=== PATIENT | male | born 1955 | race Caucasian/White ===

== ENCOUNTER → 2018-10-28 15:57 | Outpatient (CLI) | payer OTHER ==
[2016-07-21 10:25] VITALS: BMI 23.8
[~2018-10-28 15:57] MED LIST: BENADRYL25 MG PO; CIPROFLOXIN NASAL; CLARITIN 10 MG10 MG PO; PREDNISONE20 MG PO; SINGULAIR10 MG PO; SYMBICORT 16010.2 GM INH; VENTOLIN HFA18 GM INH; [UNRECOGNIZED DRUG - OTHER] NASAL
== END | disposition home or self-care (01) ==
LOC: D.CT 15:57
DX: R10.9 Unspecified abdominal pain (principal)

== ENCOUNTER 2018-12-23 17:57 | Inpatient (IN) | payer OTHER ==
[~2018-12-23] VITALS: Ht 182.9 cm; Wt 73.5 kg
[2018-12-23] MEDS ORDERED: ZESTRIL20 MG PO (18:20)
[2018-12-23 18:46] LABS: BASOPHILS 0.6 % (0-2); EOSINOPHILS 7.6 % (0-7); HEMATOCRIT 50.1 % (42.0-54.0); HEMOGLOBIN 17.4 g/dL (13.5-17.5); IMMATURE GRANULOCYTES 0.5 % (0-5); LYMPHOCYTES 13.9 % (15-50); MCHC 34.7 g/dL (31.0-37.0); MCV 89.3 fL (80.0-100.0); MEAN PLATELET VOLUME 10.1 fL (7.4-10.4); MONOCYTES 11.8 % (2-11); NEUTROPHILS 65.6 % (40-80); RBC 5.61 10x6/uL (4.20-6.10); RDW 13.3 % (11.5-14.5); WBC 11.4 10x3/uL (4.8-10.8)
[2018-12-23 19:03] LABS: PLATELET COUNT 335 10x3/uL (130-400)
[2018-12-23 19:18] LABS: ALBUMIN 3.7 g/dL (3.4-5.0); BILIRUBIN - TOTAL 0.68 mg/dL (0.2-1.3); CALCIUM 9.7 mg/dL (8.5-10.1); CREATININE - SERUM 1.1 mg/dL (0.6-1.3); PROTEIN - SERUM 8.2 g/dL (6.4-8.2)
[2018-12-23 19:22] LABS: TROPONIN-I 0.018 ng/mL (0.000-0.060)
[2018-12-23 19:26] LABS: APPEARANCE CLEAR (CLEAR); COLOR YELLOW (YELLOW); SPECIFIC GRAVITY 1.025 (1.005-1.020)
[2018-12-23 19:27] LABS: BILIRUBIN NEGATIVE (NEGATIVE); GLUCOSE NEGATIVE (NEGATIVE); KETONE MODERATE mg/dL (NEGATIVE); NITRITE NEGATIVE (NEGATIVE); PROTEIN TRACE mg/dL (NEGATIVE); UROBILINOGEN NORMAL (NORMAL)
[2018-12-23 20:00] VITALS: BP 152/97; BP 163/85
--- NOTE | 2018-12-23 20:00 | NUR ---
PT RESTING ON BED. NO S/S OF ACUTE DISTRESS NOTED. PT C/O ABD PAIN AND NAUSEA.
--- NOTE | 2018-12-23 21:15 | NUR ---
RECEIVED PT FROM ER VIA W/C. ALERT AND ORIENTED X4. STATES HE HAS BEEN VOMITING FOR A FEW WEEKS BUT IT GOT WORSE ON SUNDAY. RESP EVEN AND NONLABORED. BBS CTA. ABD SOFT, BS PRESENT X 4 QUADS. REPORTS ABD CRAMPING 8 ON PAIN SCALE. NO N/V AT THIS TIME. HAS HX OF HTN AND HASNT TAKEN MEDS IN 3 DAYS. B/P ELEVATED. DENIES DIARRHEA. LAST BM TODAY. AMBULATORY. NS @ 100 ML/HR INFUSING IN RT AC WITHOUT DIFF. NO EDEMA NOTED. SR ELEVATED X2. CL IN REACH.
[2018-12-23 23:16] VITALS: BP 152/97; BMI 22.0
--- NOTE | 2018-12-23 23:45 | NUR ---
NAUSEATED AND GAGGING. MEDICATED WITH ZOFRAN ORDERED. CL IN REACH.
[2018-12-24] VITALS: BP 159/106
[2018-12-24 01:04] VITALS: BP 160/88
--- NOTE | 2018-12-24 01:09 | NUR ---
B/P RECHECKED BECAUSE PT WAS GAGGING WHEN V/S WERE TAKEN AT 2400. B/P 160/88. DENIES NAUSEA AT THIS TIME. STATES THE ZOFRAN HELPED. CL IN REACH.
[2018-12-24 04:00] VITALS: BP 138/76
[2018-12-24 07:36] LABS: BASOPHILS 0.4 % (0-2); EOSINOPHILS 2.7 % (0-7); HEMATOCRIT 45.2 % (42.0-54.0); HEMOGLOBIN 15.4 g/dL (13.5-17.5); IMMATURE GRANULOCYTES 0.3 % (0-5); LYMPHOCYTES 8.5 % (15-50); MCH 30.7 pg (26.0-34.0); MCHC 34.1 g/dL (31.0-37.0); MCV 90.2 fL (80.0-100.0); MEAN PLATELET VOLUME 10.8 fL (7.4-10.4); MONOCYTES 8.1 % (2-11); PLATELET COUNT 293 10x3/uL (130-400); RBC 5.01 10x6/uL (4.20-6.10); RDW 13.2 % (11.5-14.5); WBC 10.1 10x3/uL (4.8-10.8)
[2018-12-24 07:39] LABS: ALBUMIN 3.1 g/dL (3.4-5.0); ALKALINE PHOSPHATASE 83 U/L (46-116); ALT (SGPT) 24 U/L (10-68); CALC OSMOLALITY 284 mosm/kg (275-300); CALCIUM 8.8 mg/dL (8.5-10.1); CHLORIDE - SERUM 104 mmol/L (98-107); GLUCOSE 112 mg/dL (74-106); PHOSPHOROUS 3.1 mg/dL (2.5-4.9); POTASSIUM - SERUM 4.1 mmol/L (3.5-5.1); PROTEIN - SERUM 7.1 g/dL (6.4-8.2); SODIUM 140 mmol/L (136-145); UREA NITROGEN 26 mg/dL (7-18); eGFR NON AFRICAN AMERICAN 80 mL/min (90-120)
--- NOTE | 2018-12-24 08:00 | NUR ---
MORNING ASSESSMENT COMPLETE. SEE ASSESSMENT FLOWSHEET FOR FURTHER DETIALS. PT LYING IN BED AAO X4 TO PERSON, PLACE, TIME, AND SITUATION. DENIES NEEDS AT THIS TIME. CL IN REACH. SIDE RAILS UP X3 FOR PATIENT SAEFTY. BED IN LOWEST POSTION
[2018-12-24 14:08] VITALS: BP 182/84
[2018-12-24 15:02] VITALS: Ht 182.9 cm; Wt 73.5 kg
[2018-12-24 15:33] LABS: AMYLASE - SERUM 33 U/L (25-115); LIPASE 121 U/L (73-393)
[2018-12-24 18:36] VITALS: BP 189/96
--- NOTE | 2018-12-24 19:25 | NUR ---
SITTING UP IN BED TALKING TO FAMILY MEMBERS. ALERT AND ORIENTED X4. IRRITABLE. REPORTS PAIN IN ABD 2 ON PAIN SCALE. OFFERED PAIN MED BUT PT DECLINED. ZOFRAN DRIP @ 4.7 ML/HR FOR NAUSEA. NS @ 100 ML/HR INFUSING IN RT AC WITHOUT DIFF. RESP EVEN AND NONLABORED. BBS CTA. ABD IS DISTENDED AND SOFT. BS PRESENT X 4 QUADS. EXPLAINED TO PT THAT STOOL SPECIMEN WAS NEEDED. HAT PLACED IN TOILET FOR COLLECTION. HE VERBALIZED UNDERSTANDING. AMBULATORY. SR ELEVATED X2. CL IN REACH.
[2018-12-24 21:21] VITALS: BP 148/91
--- NOTE | 2018-12-24 23:12 | NUR ---
PT INFORMED ON NEW ORDER OF NPO EXCEPT ICE CHIPS. HE VERBALIZED UNDERSTANDING. CL IN REACH.
--- NOTE | 2018-12-25 03:21 | NUR ---
C/O NAUSEA. MEDICATED WITH PHENERGAN 12.5MG IM ORDERED. CL IN REACH.
[2018-12-25 04:39] VITALS: BP 151/89
--- NOTE | 2018-12-25 05:03 | NUR ---
STATES THAT THE PHENERGAN WAS THE BEST MEDICATION THAT HE HAS RECEIVED SINCE HE HAD BEEN HERE. STATES NAUSEA IS GONE.
[2018-12-25 07:39] LABS: BASOPHILS 0.4 % (0-2); EOSINOPHILS 3.8 % (0-7); HEMATOCRIT 42.6 % (42.0-54.0); HEMOGLOBIN 14.3 g/dL (13.5-17.5); IMMATURE GRANULOCYTES 0.2 % (0-5); LYMPHOCYTES 12.6 % (15-50); MCHC 33.6 g/dL (31.0-37.0); MCV 89.5 fL (80.0-100.0); MEAN PLATELET VOLUME 10.8 fL (7.4-10.4); MONOCYTES 7.3 % (2-11); NEUTROPHILS 75.7 % (40-80); PLATELET COUNT 292 10x3/uL (130-400); RBC 4.76 10x6/uL (4.20-6.10); RDW 13.2 % (11.5-14.5); WBC 10.9 10x3/uL (4.8-10.8)
[2018-12-25 07:53] LABS: ALBUMIN 3.1 g/dL (3.4-5.0); ALKALINE PHOSPHATASE 77 U/L (46-116); ALT (SGPT) 24 U/L (10-68); BILIRUBIN - TOTAL 0.64 mg/dL (0.2-1.3); CALC OSMOLALITY 279 mosm/kg (275-300); CALCIUM 8.4 mg/dL (8.5-10.1); CARBON DIOXIDE 21.1 mmol/L (21.0-32.0); CHLORIDE - SERUM 105 mmol/L (98-107); CREATININE - SERUM 0.9 mg/dL (0.6-1.3); GLUCOSE 93 mg/dL (74-106); POTASSIUM - SERUM 3.9 mmol/L (3.5-5.1); PROTEIN - SERUM 6.7 g/dL (6.4-8.2); SODIUM 139 mmol/L (136-145); eGFR NON AFRICAN AMERICAN 90 mL/min (90-120)
[2018-12-25 07:54] LABS: UREA NITROGEN 17 mg/dL (7-18)
--- NOTE | 2018-12-25 08:00 | NUR ---
MORNING ASSESSMENT COMPLETE. SEE ASSESSMENT FLOWSHEET FOR FURHTER DETAILS. PT LYING IN BED AAO X4 TO PERSON, PLACE, TIME, AND SITUATION. DENIES NEEDS AT THIS TIME. CL IN REACH. SIDE RAILS UP X3 FOR PT SAEFTY. BED IN LOWEST POSITION.
[2018-12-25 09:35] VITALS: BP 185/99
[2018-12-25 13:51] VITALS: BP 161/92
[2018-12-25 20:00] VITALS: BP 150/84
[2018-12-26] VITALS (7 sets, daily range): BP systolic 147–179; BP diastolic 82–96
--- NOTE | 2018-12-26 00:15 | NUR ---
ALERT RESTING IN BED REPORTS WAS ABLE TO EAT A LITTLE SUPPER AND SO FAR TOLERATING IT OK, SEE SHIFT ASSESSMENT, CALL LIGHT IN REACH
[2018-12-26 06:48] LABS: BASOPHILS 0.3 % (0-2); EOSINOPHILS 7.5 % (0-7); HEMATOCRIT 41.4 % (42.0-54.0); HEMOGLOBIN 14.3 g/dL (13.5-17.5); IMMATURE GRANULOCYTES 0.2 % (0-5); LYMPHOCYTES 13.7 % (15-50); MCH 30.4 pg (26.0-34.0); MCHC 34.5 g/dL (31.0-37.0); MCV 88.1 fL (80.0-100.0); MEAN PLATELET VOLUME 10.6 fL (7.4-10.4); MONOCYTES 11.4 % (2-11); NEUTROPHILS 66.9 % (40-80); PLATELET COUNT 267 10x3/uL (130-400); RDW 13.2 % (11.5-14.5); WBC 11.5 10x3/uL (4.8-10.8)
[2018-12-26 06:55] LABS: ALBUMIN 2.9 g/dL (3.4-5.0); ALKALINE PHOSPHATASE 74 U/L (46-116); ALT (SGPT) 22 U/L (10-68); CALC OSMOLALITY 270 mosm/kg (275-300); CALCIUM 8.3 mg/dL (8.5-10.1); CARBON DIOXIDE 21.3 mmol/L (21.0-32.0); CHLORIDE - SERUM 101 mmol/L (98-107); CREATININE - SERUM 0.8 mg/dL (0.6-1.3); GLUCOSE 76 mg/dL (74-106); POTASSIUM - SERUM 3.5 mmol/L (3.5-5.1); PROTEIN - SERUM 6.5 g/dL (6.4-8.2); SODIUM 136 mmol/L (136-145); UREA NITROGEN 13 mg/dL (7-18); eGFR NON AFRICAN AMERICAN > 90 mL/min (90-120)
--- NOTE | 2018-12-26 08:00 | NUR ---
MORNING ASSESSMENT COMPLETE. SEE ASSESSMENT FLOWSHEET FOR FURTHER DETAILS. PT LYING IN BED AAO X4 TO [place], PLACE, TIME, AND SITUATION. DENIES NEEDS AT THIS TIME. CL IN REACH. SIDE RAILS UP X3 FOR PT NILES
--- NOTE | 2018-12-26 11:58 | MORECARE ---
CASE MANAGEMENT DISCHARGE SUMMARY PATIENT: CANDACE PARR UNIT: [id number] ADM DATE: 12/23/18 AGE: 63 : 54 SEX: M ROOM/BED: D.2230 AUTHOR: ULICESDOC PHYSICIAN: REFERRING PHYSICIAN: ERNST CONTEH MD DATE OF SERVICE: 12/26/18 Discharge Plan Patient Name: CANDACE PARR Facility: [facility]:[place] : 1955 Planned Disposition: Home Anticipated Discharge Date: Discharge Date: Expected LOS: 0 Initial Reviewer: [email or web address] Initial Review Date: 12/23/2018 Generated: 12/26/18 12:57 pm Comments DCP- Discharge Planning Updated by [email or web address]: Queta Christian on 12/26/18 10:[address] Patient Name: CANDACE PARR Admission Status: ER Accout number: [id number] Admission Date: 12-23-2018 : 1955 Admission Diagnosis: Attending: YADY, Current LOS: 3 Anticipated DC Date: Planned Disposition: Home Primary Insurance: [employer]OV[employer] MANAGED MEDICAID Discharge Planning Comments: CM met with patient to complete initial dc planning assessment. CM educated patient on the CM role and verbal consent given by patient to complete assessment. Patient lives at home with his and 9 year old daughter. At discharge patient plans to return and feels this is a safe discharge. CM discussed availability of home health, rehab services, and medical equipment. Patient denied known discharge needs at this time. CM will continue to follow and will assist as needed with dc plans/needs. Shipwright: Queta Christian DCPIA - Discharge Planning Initial Assessment Updated by [email or web address]: Queta Christian on 12/26/18 11:52 am * Is the patient Alert and Oriented? Yes * How many steps to enter\exit or inside your home? 15/0 * PCP Dr. Genao * Pharmacy [facility] on [address] * Preadmission Environment Home with Family * ADLs Independent * Equipment Nebulizer * List name and contact numbers for known caregivers / representatives who currently or will assist patient after discharge: Monika chavez - [phone] * Verbal permission to speak to the caregivers and representatives has been obtained from the patient. Yes * Community resources currently utilized None * Please name any agencies selected above. DME for Nebulizer supplies is [employer] ([place]). Mailed to his home. Set up by ENT Dr. Blanton in [place] * Additional services required to return to the preadmission environment? No * Can the patient safely return to the preadmission environment? Yes * Has this patient been hospitalized within the prior 30 days at any hospital? No Patient Name: CANDACE PARR Page [phone] at 1158 All edits/amendments must be made on the electronic document DICTATION DATE: 12/26/18 1157 BATCH UNIT TREATER: CAROLEE 12/26/18 1157 RPT#: [id number] DC DATE: STATUS: ADM IN [facility] [address] [place] [address] END OF REPORT
--- NOTE | 2018-12-26 14:47 | NUR ---
NUTRITION F/U CHART REVIEWED. PT VISIT. TOLERATING FULL LIQUID DIET. WILL MONITOR DIET ADVANCEMENT, PO INTAKE. RD FOLLOWING
--- NOTE | 2018-12-26 15:33 | NUR ---
R WRIST PIV INFILTRATED. RESITED TO R FA- 22G X1 ATTEMPT. FLUSHES WELL.
--- NOTE | 2018-12-26 21:10 | NUR ---
AWAKE,ALERT,NO COMPLAITNS VOICED. RESP EVEN AND UNALBORED. NO DISTRESS NOTED. IV INFUSING TO RFA WITHOUT REDNESS OR EDEMA NOTED. ABD SOFT NONDISTENDED. NO COMPLAINTS OF NAUSEA. CL IN REACH
--- NOTE | 2018-12-27 03:34 | NUR ---
I have reviewed this patient and I concur with the Shift Assessment completed by the Licensed Practical Nurse today this shift.
[2018-12-27 04:58] VITALS: BP 169/82
[2018-12-27 05:00] LABS: BASOPHILS 0.4 % (0-2); EOSINOPHILS 9.2 % (0-7); HEMATOCRIT 40.7 % (42.0-54.0); HEMOGLOBIN 14.3 g/dL (13.5-17.5); IMMATURE GRANULOCYTES 0.3 % (0-5); MCH 30.7 pg (26.0-34.0); MCHC 35.1 g/dL (31.0-37.0); MCV 87.3 fL (80.0-100.0); MEAN PLATELET VOLUME 10.6 fL (7.4-10.4); MONOCYTES 10.8 % (2-11); NEUTROPHILS 65.3 % (40-80); PLATELET COUNT 258 10x3/uL (130-400); RBC 4.66 10x6/uL (4.20-6.10); RDW 13.1 % (11.5-14.5); WBC 9.9 10x3/uL (4.8-10.8)
[2018-12-27 05:11] LABS: ALBUMIN 2.8 g/dL (3.4-5.0); ALKALINE PHOSPHATASE 73 U/L (46-116); ALT (SGPT) 24 U/L (10-68); CALC OSMOLALITY 272 mosm/kg (275-300); CALCIUM 8.5 mg/dL (8.5-10.1); CARBON DIOXIDE 25.8 mmol/L (21.0-32.0); CHLORIDE - SERUM 102 mmol/L (98-107); CREATININE - SERUM 0.9 mg/dL (0.6-1.3); GLUCOSE 74 mg/dL (74-106); POTASSIUM - SERUM 3.4 mmol/L (3.5-5.1); PROTEIN - SERUM 6.6 g/dL (6.4-8.2); SODIUM 137 mmol/L (136-145); UREA NITROGEN 12 mg/dL (7-18); eGFR NON AFRICAN AMERICAN 90 mL/min (90-120)
[2018-12-27 08:52] VITALS: BP 183/103
[2018-12-27] MEDS ORDERED: PROTONIX40 MG PO (12:23)
[2018-12-27] MEDS ORDERED: CARAFATE1 G PO (12:23)
[2018-12-27] MEDS ORDERED: NORVASC5 MG PO (12:36)
--- NOTE | 2018-12-27 13:19 | MORECARE ---
CASE MANAGEMENT DISCHARGE SUMMARY PATIENT: CANDACE PARR UNIT: [id number] ADM DATE: 12/26/18 AGE: 63 : 54 SEX: M ROOM/BED: D.2230 AUTHOR: SUNIL ELENA PHYSICIAN: REFERRING PHYSICIAN: ERNST CONTEH MD DATE OF SERVICE: 12/27/18 Discharge Plan Patient Name: CANDACE PARR Facility: [facility]:[place] : 1955 Planned Disposition: Home Anticipated Discharge Date: Discharge Date: Expected LOS: 0 Initial Reviewer: [email or web address] Initial Review Date: 12/23/2018 Generated: 12/27/18 2:18 pm Comments DCP- Discharge Planning Updated by [email or web address]: Queta Christian on 12/27/18 12:[address] Patient Name: CANDACE PARR Encounter No: [id number] : 1955 Primary Insurance: [employer] MANAGED MEDICAID Anticipated DC Date: Planned Disposition: Home External Planned Provider: : DCP follow-up note: Patient and family in agreement with discharge plan. No changes to plan. Case management will follow and assist as needed. Queta Christian DCP- Discharge Planning Updated by [email or web address]: Queta Christian on 12/26/18 10:[address] Patient Name: CANDACE PARR Admission Status: ER Accout number: [id number] Admission Date: 12-23-2018 : 1955 Admission Diagnosis: Attending: YADY, Current LOS: 3 Anticipated DC Date: Planned Disposition: Home Primary Insurance: [employer] MANAGED MEDICAID Discharge Planning Comments: CM met with patient to complete initial dc planning assessment. CM educated patient on the CM role and verbal consent given by patient to complete assessment. Patient lives at home with his and 9 year old daughter. At discharge patient plans to return and feels this is a safe discharge. CM discussed availability of home health, rehab services, and medical equipment. Patient denied known discharge needs at this time. CM will continue to follow and will assist as needed with dc plans/needs. Superintendent Division: Queta Christian DCPIA - Discharge Planning Initial Assessment Updated by [id number]: Queta Christian on 12/26/18 11:52 am * Is the patient Alert and Oriented? Yes * How many steps to enter\exit or inside your home? 15/0 * PCP Dr. Genao * Pharmacy [facility] on [address] * Preadmission Environment Home with Family * ADLs Independent * Equipment Nebulizer * List name and contact numbers for known caregivers / representatives who currently or will assist patient after discharge: Monika chavez - [phone] * Verbal permission to speak to the caregivers and representatives has been obtained from the patient. Yes * Community resources currently utilized None * Please name any agencies selected above. DME for Nebulizer supplies is [employer] ([place]). Mailed to his home. Set up by ENT Dr. Blanton in [place] * Additional services required to return to the preadmission environment? No * Can the patient safely return to the preadmission environment? Yes * Has this patient been hospitalized within the prior 30 days at any hospital? No Last DP export: 12/26/18 10:57 am Patient Name: CANDACE PARR Page [phone] at 1319 All edits/amendments must be made on the electronic document DICTATION DATE: 12/27/181317 FURNACE CHARGING MACHINE OPERATOR: CAROLEE 12/27/181317 RPT#: [id number] DC DATE: STATUS: ADM IN [facility] [address] [place] [address] END OF REPORT
[2018-12-27 13:21] VITALS: BP 145/87
[2018-12-27 16:40] VITALS: BP 169/95
--- NOTE | 2018-12-27 17:22 | NUR ---
IV REMOVED WITH CATH INTACT, NO REDNESS OR EDEMA, DISCHARGE INSTRUCTIONS GIVEN WITH PATIENT VOICING UNDERSTANDING. PATIENT REQUEST TO AMBULATE OUT WITH FAMILY
== END 2018-12-27 17:23 | disposition home or self-care (01) | DRG 392 ==
LOC: D.ER 17:57 → D.MS 20:35 → OBSVTIME 20:35 → D.MS 20:35
PROVIDERS: Family Medicine; Internal Medicine Gastroenterology; ADMIT Family Medicine; ATTEND Family Medicine
PROC: 0DB68ZX Excision of Stomach, Via Natural or Artificial Opening Endoscopic, Diagnostic (ICD-10-PCS; 2018-12-25)
PROC: 0DB98ZX Excision of Duodenum, Via Natural or Artificial Opening Endoscopic, Diagnostic (ICD-10-PCS; principal; 2018-12-25 16:30)
DX: K29.00 Acute gastritis without bleeding (principal); K44.9 Diaphragmatic hernia without obstruction or gangrene; K31.7 Polyp of stomach and duodenum; E86.0 Dehydration; I10 Essential (primary) hypertension; Z87.891 Personal history of nicotine dependence; F12.90 Cannabis use, unspecified, uncomplicated; R73.03 Prediabetes

== ENCOUNTER → 2019-01-03 14:56 | Outpatient (CLI) | payer OTHER ==
[2018-12-24 15:02] VITALS: BMI 21.9
[~2019-01-03 14:56] MED LIST changes: +CARAFATE1 G PO; +NORVASC5 MG PO; +PROTONIX40 MG PO; +ZESTRIL20 MG PO
[2019-01-06 13:10] LABS: ANTIGLIADIN IGA 5 units (0-19); ANTIGLIADIN IGG 3 units (0-19)
[2019-01-07 11:00] LABS: ENDOMYSIAL ANTIBODY IGA Negative (Negative)
== END | disposition home or self-care (01) ==
LOC: D.LAB 14:56
PROVIDERS: ATTEND Internal Medicine Gastroenterology
DX: D72.820 Lymphocytosis (symptomatic) (principal)

== ENCOUNTER → 2019-01-17 08:12 | Outpatient (CLI) | payer OTHER | END | disposition home or self-care (01) | LOC: D.RAD 08:12 | DX: R63.4 Abnormal weight loss (principal); R10.9 Unspecified abdominal pain ==

== ENCOUNTER → 2019-06-11 11:13 | Outpatient (CLI) | payer OTHER ==
[2018-12-24 15:02] VITALS: BMI 21.9
--- NOTE | 2019-06-17 13:38 | ST ---
PATIENT:CANDACE PARR MEDICAL RECORD: [id number] SEX: M LOCATION:[facility] ORDER #: ADMISSION DATE: 06/11/19 AGE OF PATIENT: 63 REFERRING PHYSICIAN: INTERPRETING PHYSICIAN: ONEL JALLOH MD DATE OF SERVICE: 06/11/2019 INDICATIONS: Angina and coronary artery disease and hypertension. DESCRIPTION OF THE PROCEDURE: He was exercised on standard [place] protocol for 7 minutes 55 seconds, terminated due to angina, shortness of breath and greater than 85% max target heart rate response. FINDINGS: There was greater than [address] depression with the anginal symptomatology and at peak exercise. OVERALL IMPRESSION: Positive for inducible ischemia at adequate cardiac workload. Current test does suggest the presence of hemodynamically significant coronary artery disease. TRANSINT:[id number] Voice Confirmation ID: [id number] DOCUMENT ID: [id number] ONEL JALLOH MD at 1338 CC: EULOGIO CASTELLON DO [id number] DICTATION DATE: 06/16/19 1035 YARN TEXTURING MACHINE OPERATOR: 06/17/19 0336 DEP CLI 06/11/19 [id number] [place] [address]
== END | disposition home or self-care (01) ==
LOC: D.HCCARDIO 11:13
PROVIDERS: ATTEND Internal Medicine Interventional Cardiology
DX: I20.9 Angina pectoris, unspecified (principal)

== ENCOUNTER 2019-07-04 08:40 | Outpatient (CLI) | payer OTHER ==
[~2019-07-04] VITALS: Ht 180.3 cm; Wt 74.1 kg
--- NOTE | ~2019-07-04 | HEMODYNAMI ---
PATIENT:CANDACE PARR MEDICAL RECORD: [id number] : 53 LOCATION:[facility] ADMISSION DATE: 07/04/19 Generatedon:07/04/201911:35 Patient name: CANDACE PARR Patient #: [id number] : 1955 Date of study: 07/04/2019 Page: Of Hemodynamic Procedure Report Patient Data Patient Demographics Procedure consent was obtained First Name: CANDACE Gender: Male Last Name: KAROLYN : 1955 Middle Initial: OLI Age: 63 year(s) Patient #: [id number] Race: Unknown SSN: [id number] Additional ID: [id number] Contact details Address: [address] [place] [address] rd State: [place] City: [place] Zip code: [address] Past Medical History Allergies Allergen Reaction Date Comments Reported Other allergy 07/04/2019 NSAIDS Admission Admission Data Admission Date: 07/04/2019 Admission Time: 8:40 Arrival Date: 07/04/2019 Arrival Time: 0:00 Admit Source: Other Insurance Payor: Medicare Height (in.): 70.87 BSA: 1.93 (m2) Height (cm.): 180 BMI: 22.84 (kg/m2) Weight (lbs.): 163.14 Weight (kg.): 74 Lab Results Lab Result Date: 07/04/2019 Lab Result Time: 0:00 Biochemistry Name Units Result Min Max BUN mg/dl 24 --(----)-* 7 18 Creatinine mg/dl 0.9 --(-*--)-- 0.6 1.3 eGFR ml/min 90 --(*---)-- 90 120 NONAFRICAN CBC Name Units Result Min Max Hemoglobin g/dl 13.1 -*(----)-- 13.5 17.5 Procedure Procedure Types Cath Procedure Diagnostic Procedure C [facility] w/Coronaries Sedation Charges Moderate Sedation up to 15 minutes PCI Procedure Coronary Stent Coronary Stent Initial Procedure Description Procedure Date Procedure Date: 07/04/2019 Procedure Start Time: 11:17 Procedure End Time: 11:33 Procedure Staff Name Function Linda Juju RT Scrub Karma Vasquez RT Monitor Guadalupe Ring RN Nurse Kenneth Domínguez MD Performing Physician Indication Chest pain Angina Procedure Data Cath Procedure Fluoroscopy Diagnostic fluoroscopy Total fluoroscopy Time: 3.9 time: 3.9 min min Diagnostic fluoroscopy Total fluoroscopy dose: 635 dose: 635 mGy mGy Contrast Material Contrast Material Type Amount (ml) Isovue 300 108 Entry Location Entry Primary Successful Side Size Upsize Upsize Entry Closure Farrell ccessful Closure Location (Fr) 1 (Fr) 2 (Fr) Remarks Device Remarks Radial Right 6 Fr Mechanical artery Short Compression Estimated blood loss: 10 ml Diagnostic catheters Device Type Used For End Catheter Placement DIAGNOSTIC [place] 110cm 5 Procedure Fr catheter ([id number]) Procedure Complications No complications Procedure Medications Medication Administration Route Dosage 0.9% NaCl I.V. 100 ml/hr Oxygen etCO2 Nasal cannula 2 l/min Lidocaine 2% added to field 20 Heparin Flush Bag added to field 2 bags (1000units/500ml NS) Radial Cocktail added to field 1 syringe (Verapamil 2mg/Nitro 400mcg/Heparin 1500units) Versed I.V. 2 mg Fentanyl I.V. 100 mcg Heparin Bolus I.V. 4000 units Integrilin (Bolus I.V. 6.8 ml 2mg/ml) Integrilin (Bolus wasted 3.2 ml 2mg/ml) Plavix P.O. 600 mg Hemodynamics Rest BSA: 1.93 (m2) O2 Consumption: Estimated: 227.69 (ml/min) O2 Consumption indexed : Estimated:117.97 (ml/min/m) Heart Rate: 73 (bpm) Pressure Samples Time Site Value (mmHg) Purpose Heart Use Rate(bpm) 11:18 LV 128/7,25 Snapshot 73 11:18 AO 119/72(91) Pullback 62 11:18 LV 105/31,21 Pullback 62 Gradients Valve Time Site 1 Site 2 Mean SEP/DFP Peak To Heart Use (mmHg) (sec/min) Peak Rate (mmHg) (bpm) Aortic 11:18 LV AO 0 62 105/31,21 119/72(91) Calculations Valve P-P Mean Valve Index Valve Source Name Gradient Area Flow (cm2) Aortic 0 0 Snapshots Pre Cath Intra NCS Post Cath Vital Signs Time Heart Resp SPO2 etCO2 NIBP (mmHg) Rhythm Pain Sedation Rate (ipm) (%) (mmHg) Status Level (bpm) 11:08:16 51 17 98 31.6 Measuring SB 0 (11) 10(A) , No pain 11:08:37 51 16 97 28.6 158/88(132) SB 0 (11) 10(A) , No pain 11:12:56 53 16 98 3.7 156/85(129) SB 0 (11) 10(A) , No pain 11:17:55 60 16 99 30.1 Measuring SB 0 (11) 9(A) , No pain 11:18:36 56 14 98 15 121/67(81) SB 0 (11) 9(A) , No pain 11:22:46 56 14 98 12.8 126/72(110) SB 0 (11) 9(A) , No pain 11:27:43 52 13 98 26.3 128/79(104) SB 0 (11) 10(A) , No pain 11:31:53 59 9 98 27.1 134/80(113) SB 0 (11) 10(A) , No pain Medications Time Medication Route Dose Verified Delivered Reason Not es Effectiveness by by 11:06:35 0.9% NaCl I.V. 100 Kenneth Guadalupe used for ml/hr Sang Ring hand lens polisher 11:06:42 Oxygen etCO2 2 l/min Kenneth Guadalupe used for Nasal Sang Ring procedure cannula RN 11:06:46 Lidocaine 2% added 20ml Kenneth Cooper for local to vial Sang Domínguez MD anesthetic field 11:06:51 Heparin Flush added 2 bags Kenneth Cooper used for Bag to Sang oDmínguez MD procedure (1000units/500ml field NS) 11:07:00 Radial Cocktail added 1 Kenneth Cooper used for (Verapamil to syringe Sang Domínguez MD procedure 2mg/Nitro field 400mcg/Heparin 1500units) 11:15:40 Versed I.V. 2 mg Kenneth Guadalupe for sedation Sang Ring RN 11:15:45 Fentanyl I.V. 100 mcg Kenneth Guadalupe for sedation Sang Ring RN 11:22:05 Heparin Bolus I.V. 4000 Kenneth Guadalupe for anila ified units Sang Ring anticoagulation with Dr. RAJANI Domínguez 11:22:18 Integrilin I.V. 6.8 ml Kenneth Mckeona for (Bolus 2mg/ml) Sang Ring antiplatelet RN therapy 11:22:29 Integrilin wasted 3.2 ml Kenneth Butcher for (Bolus 2mg/ml) Sang Ring antiplatelet RN therapy 11:22:35 Plavix P.O. 600 mg Kenneth Butcher for Sang Ring antiplatelet RN therapy Procedure Log Time Note 10:50:42 Procedure Status Elective Heart Cath (OP). 10:50:44 Guadalupe Ring RN sent for patient. Start room use. 10:50:46 Time tracking: Regular hours (M-F 7:00 - 5:00) 10:54:19 Plan of Care:Hemodynamics will remain stable., Cardiac rhythm will remain stable., Comfort level will be maintained., Respiratory function will remain adequate., Patient/ family verbilizes understanding of procedure., Procedure tolerated without complication., Recovers from procedure without complications.. 10:54:42 Informed consent obtained and on chart 10:58:59 Patient Height : 70.87 inches 10:59:01 Patient Weight : 163.14 lbs 10:59:04 Admit Source: Other 10:59:07 Arrival Date: 07/04/2019 12:00:00 AM 10:59:18 Insurance Payor : Medicare 11:00:28 Lab Result : Creatinine 0.9 mg/dl 11:00:28 Lab Result : BUN 24 mg/dl 11:00:28 Lab Result : Hemoglobin 13.1 g/dl 11:00:28 Lab Result : eGFR NONAFRICAN 90 ml/min 11:00:44 Indication : Chest pain 11:01:03 Indication : Angina 11:01:30 Patient received from Pre/Post Procedure Room to CCL 2 Alert and oriented. Tansferred to table in Supine position. 11:01:31 Warm blankets applied, and charli hugger turned on for patient comfort. 11:01:32 Correct patient and procedure confirmed by team. 11:01:33 ECG and BP/O2 sat monitors applied to patient. 11:01:53 H&P Date Dictated: 06/05/2019 Within 30 days and on chart., H&P Addendum completed by physician on day of procedure. (MUST COMPLETE FOR ALL OUTPATIENTS). 11:01:55 Pre-procedure instructions explained to patient. 11:01:57 Family in waiting room. 11:01:58 Patient NPO since Midnight. 11:02:12 Patient allergic to Other allergyNSAIDS 11:02:15 Is the patient allergic to Iodine/contrast media? No. 11:02:16 Was the patient premedicated? Yes 11:06:26 Vital chart was started 11:06:35 0.9% NaCl 100 ml/hr I.V. was administered by Guadalupe Ring RN; used for procedure; Verbal order read back and verified. 11:06:42 Oxygen 2 l/min etCO2 Nasal cannula was administered by Guadalupe Ring RN; used for procedure; Verbal order read back and verified. 11:06:46 Lidocaine 2% 20ml vial added to field was administered by Kenneth Domínguez MD; for local anesthetic; Verbal order read back and verified. 11:06:51 Heparin Flush Bag (1000units/500ml NS) 2 bags added to field was administered by Kenneth Domínguez MD; used for procedure; Verbal order read back and verified. 11:07:00 Radial Cocktail (Verapamil 2mg/Nitro 400mcg/Heparin 1500units) 1 syringe added to field was administered by Kenneth Domínguez MD; used for procedure; Verbal order read back and verified. 11:10:02 Is patient on blood thinner?No 11:10:13 Patient diabetic? No. 11:10:17 Snore? Unknown 11:10:19 Sleep apnea? No 11:10:23 Airway obstruction? Yes copd 11:10:29 Dentures? No ? 11:10:42 Lab results completed and on chart. 11:10:47 Patient pain scale 0/10 ?. 11:10:53 Right Radial & Right Groin area was prepped with chlora-prep and draped in sterile fashion 11:10:55 Alarms reviewed by R. N. 11:10:55 Sharps counted by scrub and verified by R.N. 11:10:56 Physician paged 11:13:46 Physician arrived 11:13:47 --------ALL STOP TIME OUT------ 11:13:48 Final Timeout: patient, procedure, and site verified with staff and physician. All members of the team are in agreement. 11:13:51 Right Radial & Right Groin site verified by team. 11:13:58 Fire Safety Assessment: A--An alcohol-based skin anteseptic being used preoperatively., C--Open oxygen or nitrous oxide is being used., D--An ESU, laser, or fiber-optic light is being used. 11:14:05 Physical assessment completed. ASA score P 3 - A patient with severe systemic disease as per Kenneth Domínguez MD. 11:14:10 1) 90+ Normal kidney functon but urine findings or structural abnormalities or genetic trait point to kidney disease. 11:14:15 Maximum allowable contrast dose (3.7 X eGFR X 0.75)250 ml. 11:14:20 Sedation plan: IV Moderate Sedation Medication:Versed, Fentanyl 11:14:24 Use device set Radial Dx or PCI 11:14:35 ACIST Syringe (31182) opened to sterile field. 11:14:35 Medline Cath Pack ([id number]) opened to sterile field. 11:14:36 Bag Decanter (2002S) opened to sterile field. 11:14:37 ACIST Hand Control (11933) opened to sterile field. 11:14:37 ACIST Manifold (55303) opened to sterile field. 11:14:38 Tegaderm 4 x 4 (1626W) opened to sterile field. 11:14:39 MBrace Wrist Support ([id number]) opened to sterile field. 11:14:41 EMERALD Guide Wire (134-283) opened to sterile field. 11:14:42 SHEATH 6FR RAIN (9428046) opened to sterile field. 11:15:40 Versed 2 mg I.V. was administered by Guadalupe Ring RN; for sedation; Verbal order read back and verified. 11:15:45 Fentanyl 100 mcg I.V. was administered by Guadalupe Ring RN; for sedation; Verbal order read back and verified. 11:17:02 Procedure started. 11:17:02 Full Disclosure recording started 11:17:17 Local anesthetic to right radial artery with Lidocaine 2% by Kenneth Domínguez MD.INITIAL ACCESS ONLY 11:17:26 A 6 Fr Short sheath was inserted into the Right Radial artery 11:17:30 J wire advanced. 11:17:42 A DIAGNOSTIC [place] 110cm 5 Fr catheter ([id number]) was advanced over the wire and used for Procedure. 11:18:07 LV angiography performed. 11:18:13 LV gram done using ATKINSON 11:18:31 EF : 60 % 11:18:38 LCA angiography performed. 11:19:17 RCA angiography performed. 11:20:05 ACCDominant side:Left 11:20:25 Catheter removed. 11:20:27 Proceeding to intervention. 11:20:50 Pre PCI Site: [place]ath pLAD has 90% stenosis. 11:20:59 Pre PCI Site: [place] mLAD has 90% stenosis. 11:22:05 Heparin Bolus 4000 units I.V. was administered by Guadalupe Ring RN; for anticoagulation; verified with Dr. Domínguez Verbal order read back and verified. 11:22:18 Integrilin (Bolus 2mg/ml) 6.8 ml I.V. was administered by Guadalupe Ring RN; for antiplatelet therapy; Verbal order read back and verified. 11:22:29 Integrilin (Bolus 2mg/ml) 3.2 ml wasted was administered by Guadalupe Ring RN; for antiplatelet therapy; Verbal order read back and verified. 11:22:35 Plavix 600 mg P.O. was administered by Guadalupe Ring RN; for antiplatelet therapy; Verbal order read back and verified. 11:23:13 6 Fr XBLAD3.5 guide catheter was inserted over the wire 11:23:17 choice wire advanced. 11:24:23 Place stent Inflation Number: 1 A CHARLOTTE RX 2.5 x 18 stent ([id number]) was prepped and advanced across the Mid LAD 90. The stent was deployed at 17 KATHRINE for 0:05 (min:sec) . 11:25:43 Place stent Inflation Number: 1 A CHARLOTTE RX 2.5 x 15 stent ([id number]) was prepped and advanced across the Prox LAD 90. The stent was deployed at 21 KATHRINE for 0:10 (min:sec) 0. 11:27:12 Place stent Inflation Number: 2 A CHARLOTTE RX 2.5 x 22 stent ([id number]) was prepped and advanced across the Mid LAD 90. The stent was deployed at 17 KATHRINE for 0:04 (min:sec) 0. 11:28:11 CHOICE PT Extra Support 182cm wire ([id number]) opened to sterile field. 11:28:12 INFLATOR Merit [place] (XL3855) opened to sterile field. 11:29:16 GUIDE 6FR XBLAD 3.5 catheter ([id number]) opened to sterile field. 11:29:23 ZEPHYR REGULAR TR BAND (475158) opened to sterile field. 11:29:37 Wire removed. 11:29:37 Guide catheter removed. 11:29:54 Post PCI Site: Mcgrath mLAD has 0% stenosis. 11:30:07 Post PCI Site: Mcgrath pLAD has 0% stenosis. 11:30:46 ACT drawn and resulted at 212 seconds. (normal therapeutic range 180-240 seconds). 11:31:07 Sheath removed intact; hemostasis achieved with Mechanical Compression to the Right Radial artery. 11:31:10 Procedure ended.(Physican Out) 11:31:23 Fluoroscopy time 03.90 minutes. 11:31:28 Fluoroscopy dose: 635 mGy 11:31:28 Flurop Dose total: 635 11:31:33 Dose Area Product 14896 mGy/cm. 11:31:40 Contrast amount:Isovue 300 108ml. 11:31:42 Maximum allowable dose exceeded? No. 11:31:43 Sharps counted by scrub and verified by R.N. 11:31:45 [place]amo band inflated with 10cc of air. 11:31:56 Post-procedure physical assessment completed. ASA score P 3 - A patient with severe systemic disease as per Kenneth Domínguez MD. 11:32:16 Post procedure rhythm: sinus rhythm 11:32:26 Estimated blood loss: 10 ml 11:32:27 Post procedure instruction explained to patient.Patient verbalizes understanding. 11:32:42 Procedure type changed to Cath procedure, Diagnostic procedure, LHC, C w/Coronaries, Sedation Charges, Moderate Sedation up to 15 minutes, PCI procedure, Coronary Stent, Coronary Stent Initial 11:32:43 Procedure and supply charges have been captured, reviewed, submitted and are correct. 11:33:13 Procedure Complication : No complications 11:33:15 Vital chart was stopped 11:33:18 [facility] Findings: MVD- PCI performed (see procedure note) 11:33:21 Operative report dictated upon procedure completion. 11:33:22 See physician's report for complete and final results. 11:33:24 Report given to Pre/Post Procedure Room. 11:33:27 Patient transfered to Pre/Post Procedure Room with Stretcher. 11:33:37 Procedure ended. 11:33:37 Full Disclosure recording stopped 11:33:48 ACC-PCI Only Patient was given prescriptions, or instructed by Kenneth Domínguez MD to start/continue the following medications upon discharge: Plavix 11:33:50 End room use (Document Last) 11:34:05 End room use (Document Last) 11:34:39 End room use (Document Last) Intervention Summary Intervention Notes Time ActionType Lesion and Equipment Used Action# Pressure Duration Attributes 11:24:23 Place stent Mid LAD CHARLOTTE RX 2.5 x 1 17 00:06 18 stent ([id number]) 11:25:43 Place stent Prox LAD CHARLOTTE RX 2.5 x 1 21 00:10 15 stent ([id number]) 11:27:12 Place stent Mid LAD CHARLOTTE RX 2.5 x 2 17 00:04 22 stent ([id number]) Device Usage Item Name Manufacture Quantity Catalog Number Hospital Part Current M inimal Lot# / Charge Number Stock Stock Serial# Code ACIST Syringe Acist 1 00961 565728 185054 867331 2 0 (46551) Medical Systems Inc Medline Cath Medline 1 [id number] 022606 78335 476561 5 Pack ([id number]) Bag Decanter Microtek 1 2001S 920725 06265 263070 5 (2001S) Medical Inc. ACIST Hand Acist 1 79398 410175 737116 848370 5 Control Medical (75047) Systems Inc ACIST Manifold Acist 1 68960 133147 885051 281476 5 (39768) Medical Systems Inc Tegaderm 4 x 4 3M 1 1626W 538188 047604 926802 5 (1626W) MBrace Wrist Advanced 1 140-0250-00 901499 33654 884212 5 Support Vascular ([id number]) Dynamics EMERALD Guide Cardinal 1 649-455 436288 054521 313990 5 Wire (770-883) Health SHEATH 6FR Cardinal 1 1814781 823384 8200852 024918 5 RAIN (6105762) Health DIAGNOSTIC Terumo 1 40-5013 655654 476832 368426 5 [place] 110cm 5 Fr catheter (442637) CHALROTTE RX 2.5 x Medtronic 1 [id number] 580011 1368958 435433 5 [id number] 18 stent ([id number]) CHARLOTTE RX 2.5 x Medtronic 1 [id number] 925950 0938484 628864 5 [id number] 15 stent ([id number]) CHARLOTTE RX 2.5 x Medtronic 1 [id number] 185649 0571296 215932 5 [id number] 22 stent ([id number]) CHOICE PT Drew 1 [id number] 702124 059187 364478 5 Extra Support Scientific 182cm wire (3683554P3) INFLATOR Merit Merit 1 AR2410 968607 298660 209169 1 5 [employer] (HN7555) GUIDE 6FR Cardinal 1 [id number] 357388 054790 172918 1 0 XBLAD 3.5 Health catheter (49340583) ZEPHYR REGULAR Cardinal 1 559384 865064 7620317 476072 5 [facility] [employer] (972999) Signature Audit [place] Stage Time Signature Unsigned Intra-Procedure 07/04/2019 Karma Vasquez 11:34:05 AM RT(R) Intra-Procedure 07/04/2019 Guadalupe iRng 11:34:39 AM RN Intra-Procedure 07/04/2019 Kenneth Domínguez 11:35:02 AM Signatures Monitor : Karma Vasquez Signature : RT Date : Time : Nurse : Guadalupe Ring RN Signature : Date : Time : Performing Physician : Signature : Kenneth Domínguez MD Date : Time : [place] [id number] [place] [address]
[2019-07-04] MEDS ORDERED: MICARDIS40 MG PO (08:54)
[2019-07-04 09:21] VITALS: BP 157/107; Ht 180.3 cm; Wt 74.1 kg
[2019-07-04 09:26] LABS: BASOPHILS 1.3 % (0-2); EOSINOPHILS 18.5 % (0-7); HEMATOCRIT 39.4 % (42.0-54.0); HEMOGLOBIN 13.1 g/dL (13.5-17.5); IMMATURE GRANULOCYTES 0.5 % (0-5); LYMPHOCYTES 16.8 % (15-50); MCH 30.3 pg (26.0-34.0); MCHC 33.2 g/dL (31.0-37.0); MEAN PLATELET VOLUME 9.6 fL (7.4-10.4); MONOCYTES 7.8 % (2-11); NEUTROPHILS 55.1 % (40-80); PLATELET COUNT 306 10x3/uL (130-400); RBC 4.33 10x6/uL (4.20-6.10); RDW 14.6 % (11.5-14.5); WBC 10.4 10x3/uL (4.8-10.8)
[2019-07-04 09:40] LABS: ALT (SGPT) 25 U/L (10-68); CALC OSMOLALITY 286 mosm/kg (275-300); CALCIUM 8.7 mg/dL (8.5-10.1); CHLORIDE - SERUM 105 mmol/L (98-107); CHOL - HDL RATIO 4.3 ratio (2.3-4.9); CHOLESTEROL, TOTAL 207 mg/dL (0-200); CREATININE - SERUM 0.9 mg/dL (0.6-1.3); GLUCOSE 107 mg/dL (74-106); HDL CHOLESTEROL 48 mg/dL (32-96); LDL CHOLESTEROL 144 mg/dL (0-100); SODIUM 142 mmol/L (136-145); TRIGLYCERIDE 75 mg/dL (30-200); UREA NITROGEN 24 mg/dL (7-18); eGFR NON AFRICAN AMERICAN 90 mL/min (90-120)
--- NOTE | 2019-07-04 11:40 | NUR ---
PT ARRIVED BY STRETCHER. PLACED ON MONITOR. ASSESSMENT COMPLETED. VSS. FAMILY AT BEDSIDE.
[2019-07-04] MEDS ORDERED: BAYER CHEWABLE81 MG PO (11:53)
[2019-07-04] MEDS ORDERED: PLAVIX75 MG PO (11:54)
[2019-07-04] MEDS ORDERED: PRAVACHOL40 MG PO (11:54)
--- NOTE | 2019-07-04 11:55 | NUR ---
RIGHT WRIST Z BAND IN PLACE. NO BLEEDING/HEMATOMA NOTED. PT RESTING COMFORTABLY. VSS. FAMILY AT BEDSIDE. CALL LIGHT WITHIN REACH. NO NEEDS AT THIS TIME.
--- NOTE | 2019-07-04 12:25 | NUR ---
PT RESTING COMFORTABLY. VSS. CALL LIGHT WITHIN REACH. RIGHT RADIAL Z BAND IN PLACE. NO BLEEDING/HEMATOMA NOTED. NO NEEDS AT THIS TIME.
--- NOTE | 2019-07-04 13:00 | NUR ---
RIGHT WRIST Z BAND IN PLACE. NO BLEEDING/HEMATOMA NOTED. CALL LIGHT WITHIN REACH. PT SIPPING ON WATER. DENIES NAUSEA. VSS. NO OTHER NEEDS AT THIS TIME. FAMILY AT BEDSIDE.
--- NOTE | 2019-07-04 13:00 | NUR ---
RIGHT RADIAL Z BAND IN PLACE. NO BLEEDING/HEMATOMA NOTED. CALL LIGHT WITHIN REACH. VSS. NO NEEDS AT THIS TIME.
--- NOTE | 2019-07-04 13:30 | NUR ---
RIGHT RADIAL Z BAND IN PLACE. NO BLEEDING/HEMATOMA NOTED. CALL LIGHT WITHIN REACH. VSS. DENIES NAUSEA/PAIN AT THIS TIME.
--- NOTE | 2019-07-04 14:30 | NUR ---
3cc OF AIR REMOVED FROM BAND. NO BLEEDING/HEMATOMA NOTED. PT TOLERATING SIPS OF WATER. DOES NOT WANT TO EAT AT THIS TIME. CALL LIGHT WITHIN REACH. VOIDED APPROX 300cc OF URINE IN URINAL WITHOUT DIFFICULTY.
--- NOTE | 2019-07-04 14:45 | NUR ---
3cc OF AIR REMOVED FROM Z BAND. TOLERATED WELL. NO BLEEDING/HEMATOMA NOTED. CALL LIGHT WITHIN REACH. FAMILY AT BEDSIDE.
--- NOTE | 2019-07-04 15:00 | NUR ---
3cc OF AIR REMOVED FROM Z BAND. NO BLEEDING/HEMATOMA NOTED. CALL LIGHT WITHIN REACH.
--- NOTE | 2019-07-04 15:10 | NUR ---
2cc OF AIR REMOVED FROM Z BAND. NO BLEEDING/HEMATOMA NOTED. CALL LIGHT WITHIN REACH. FAMILY AT BEDSIDE.
--- NOTE | 2019-07-04 15:20 | NUR ---
PIV D/C'D WITH CATH TIP INTACT. PT TOLERATED WELL. Z BAND REMOVED AND DRESSING APPLIED. NO BLEEDING/HEMATOMA NOTED. RIGHT WRIST BRACE IN PLACE. PT INSTRUCTED TO KEEP ON FOR 2 HOURS AFTER ARRIVAL HOME. VOICED UNDERSTANDING. PRESCRIPTIONS GIVEN TO PT'S AND STRESSED THE IMPORTANCE OF STARTING MEDICATIONS TOMORROW.
--- NOTE | 2019-07-04 15:30 | NUR ---
RIGHT WRIST DRESSING C/D/I. NO S/S OF HEMATOMA NOTED. PT REFUSED WHEELCHAIR. AMBULATED TO VEHICLE. NO S/S OF DISTRESS NOTED. ALL BELONGINGS AND PAPERWORK IN HAND.
--- NOTE | 2019-07-07 11:10 | OP ---
PATIENT NAME: CANDACE PARR MEDICAL RECORD: [id number] :53 LOCATION:D.CAT ADMISSION DATE: SURGEON: ONEL JALLOH MD DATE OF OPERATION: 07/04/2019 PROCEDURES: 1. PTCA stent LAD. 2. Left heart catheterization. 3. Selective coronary angiography. 4. Left ventriculogram. INDICATION: Angina and coronary artery disease. PROCEDURE IN DETAIL: After informed consent was obtained and after a detailed description of the risks, benefits as well as alternative therapies, the patient elected to proceed with angiogram and angioplasty. The right radial area was prepped and draped in normal sterile fashion. Right radial artery was cannulated via modified Seldinger technique with placement of 6-Malawian sheath. All catheters exchanged through this sheath. FINDINGS: Left ventriculogram was performed in standard 30-degree ATKINSON view, reveals good cardiac wall motion, ejection fraction is 60%. SELECTIVE CORONARY ANGIOGRAPHY: 1. Left main is with no significant angiographic disease. 2. Left anterior descending has a 90% stenosis proximally, 90% stenosis in mid vessel. 3. Left circumflex has moderate irregularities, but no flow-limiting stenosis. 4. Right coronary artery is small, nondominant with no significant disease. PTCA STENT OF THE LAD: The stent used proximally 2.5 x 15 mm Hope. In the mid vessel was a 2.5 x 22 and 2.5 x 18 mm Hope. Result was 0% residual stenosis. OVERALL IMPRESSION: Successful percutaneous transluminal coronary angioplasty stent of the left anterior descending going from 90% initial stenosis times 2 to 0% residual. TRANSINT:[id number] Voice Confirmation ID: [id number] DOCUMENT ID: [id number] ONEL JALLOH MD at 1110 CC: [id number] DICTATION DATE: 07/04/19 1133 BUS BOY: 07/04/19 1153 DEP CLI 07/04/19 [place] [id number]
== END 2019-07-04 15:30 | disposition home or self-care (01) ==
LOC: D.CATH 08:40
PROVIDERS: ATTEND Internal Medicine Interventional Cardiology
DX: I25.110 Atherosclerotic heart disease of native coronary artery with unstable angina pectoris (principal); R94.30 Abnormal result of cardiovascular function study, unspecified

== ENCOUNTER → 2019-11-18 16:17 | Outpatient (CLI) | payer MEDICARE ==
[2019-07-04 09:21] VITALS: BMI 22.7
[~2019-11-18 16:17] MED LIST changes: +BAYER CHEWABLE81 MG PO; +MICARDIS40 MG PO; +PLAVIX75 MG PO; +PRAVACHOL40 MG PO
[2019-11-18 16:48] LABS: CHOL - HDL RATIO 3.3 ratio (2.3-4.9)
== END | disposition home or self-care (01) ==
LOC: D.LABREF 16:17
PROVIDERS: ATTEND Internal Medicine Interventional Cardiology
DX: E78.5 Hyperlipidemia, unspecified (principal)

== ENCOUNTER → 2020-03-29 17:34 | Outpatient (CLI) | payer MEDICARE ==
[2019-07-04 09:21] VITALS: BMI 22.7
[2020-03-29 18:04] LABS: CHOL - HDL RATIO 3.5 ratio (2.3-4.9)
== END | disposition home or self-care (01) ==
LOC: D.LABREF 17:34
PROVIDERS: ATTEND Internal Medicine Cardiovascular Disease
DX: E78.5 Hyperlipidemia, unspecified (principal)

== ENCOUNTER 2020-07-12 05:45 | Day surgery (SDC) | payer MEDICARE, OTHER, MEDICAID ==
[2020-07-09 10:55] LABS: HEMATOCRIT 42.4 % (42.0-54.0); HEMOGLOBIN 13.8 g/dL (13.5-17.5); MCH 30.4 pg (26.0-34.0); MCHC 32.5 g/dL (31.0-37.0); MCV 93.4 fL (80.0-100.0); MEAN PLATELET VOLUME 9.4 fL (7.4-10.4); RBC 4.54 10x6/uL (4.20-6.10); RDW 13.9 % (11.5-14.5); WBC 9.7 10x3/uL (4.8-10.8)
[~2020-07-12] VITALS: Ht 182.9 cm; Wt 81.6 kg
--- NOTE | ~2020-07-12 | OP ---
PATIENT NAME: CANDACE PARR MEDICAL RECORD: [id number] :53 LOCATION:D.OPS ADMISSION DATE: SURGEON: SAWYER LOPEZ MD DATE OF OPERATION: 07/12/2020 PREOPERATIVE DIAGNOSIS: Trigger finger, left ring finger. POSTOPERATIVE DIAGNOSIS: Trigger finger, left ring finger. PROCEDURE: A1 natty release of the left ring finger. SURGEON: Sawyer Lopez MD ANESTHESIA: TIVA with local. INTRAOPERATIVE COMPLICATIONS: None. SUMMARY OF PATHOLOGIC FINDINGS: The patient had a very tight A1 natty consistent with preoperative diagnosis of trigger finger. OPERATIVE SUMMARY IN DETAIL: After obtaining the appropriate preoperative orthopedic surgery consent as well as anesthetic consultation, evaluation and clearance, the patient was brought to the operating room and placed on the operating table in supple position. After general laryngeal mask was administered, tourniquet was placed on the proximal aspect of the left upper extremity. Left upper extremity was then prepped and draped in routine sterile fashion. The arm was elevated and exsanguinated, tourniquet was inflated to 250 mmHg. After local infiltration of anesthetic, incision was made directly over the A1 natty, taken down to the level of the A1 natty, which was incised to release the triggering mechanism. Wound was then copiously irrigated and closed with 4-0 nylon in interrupted fashion. Sterile dressings were applied. Tourniquet was deflated. The patient was awakened, taken to recovery room in stable condition. All final needle and sponge counts were correct. TRANSINT:[id number] Voice Confirmation ID: [id number] DOCUMENT ID: [id number] SAWYER LOPEZ MD CC: [id number] DICTATION DATE: 07/12/20908 CABINET FINISHER: 07/12/20 1340 [facility] 07/12/20 [facility] [address] [place] [address]
[~2020-07-12 05:45] MED LIST changes: +ALLERGY SHOTS; +DUPIXENT; +PROAIR HFA8.5 G1
[2020-07-12 06:38] VITALS: BP 131/80; Ht 182.9 cm; Wt 81.6 kg
--- NOTE | 2020-07-12 08:46 | NUR ---
0845 ICE CAP PLACED. SON AT BEDSIDE TALKING TO PT.
[2020-07-12] MEDS ORDERED: DILAUDID2 MG PO (09:13)
== END 2020-07-12 09:40 | disposition home or self-care (01) ==
LOC: D.OPS 05:45
PROVIDERS: Anesthesiology; ATTEND Orthopaedic Surgery
DX: M65.342 Trigger finger, left ring finger (principal); J44.9 Chronic obstructive pulmonary disease, unspecified

== ENCOUNTER → 2021-03-15 20:11 | Outpatient (CLI) | payer MEDICARE, MEDICAID ==
[2020-07-12 06:38] VITALS: BMI 24.4
[~2021-03-15 20:11] MED LIST changes: +DILAUDID2 MG PO
== END | disposition home or self-care (01) ==
LOC: D.LABREF 20:11
PROVIDERS: ATTEND Nurse Practitioner
DX: I25.10 Atherosclerotic heart disease of native coronary artery without angina pectoris (principal)